=== PATIENT | female | born 1980 | race Hispanic/Latino ===

== ENCOUNTER 2019-03-12 08:03 | Emergency (ER) | payer OTHER ==
[2019-03-12] MEDS ORDERED: ONDANSETRON 4 MG/2 ML VIAL ONE (08:44)
[2019-03-12] MEDS ORDERED: MORPHINE 4 MG/ML SYR ONE (08:44)
[2019-03-12] MEDS ORDERED: NA CHLORIDE 0.9% 1,000 ML ONE (08:44)
[2019-03-12 09:32] LABS: Absolute Lymphocytes (CBC) 1.5 K/uL (0.7-4.9); Hematocrit 37.1 % (36.0-45.0); Lymphocytes % 28.8 % (15.3-44.8); MPV 7.7 fL (7.6-11.3); RBC Red Blood Cell Count 4.31 M/uL (3.86-4.86)
[2019-03-12 09:53] LABS: ALT/SGPT 34 U/L (12-78); AST/SGOT 22 U/L (15-37); Albumin 3.7 g/dL (3.4-5.0); Alkaline Phosphatase 93 U/L (45-117); BUN Blood Urea Nitrogen 10 mg/dL (7-18); Bicarbonate 29 mmol/L (21-32); Bilirubin Direct 0.1 mg/dL (0-0.2); Bilirubin Total 0.6 mg/dL (0.2-1.0); Glucose Level 89 mg/dL (74-106); Lipase 239 U/L (73-393); Potassium 4.2 mmol/L (3.5-5.1); Protein, Total 7.4 g/dL (6.4-8.2); Sodium Level 141 mmol/L (136-145)
--- NOTE | 2019-03-12 10:54 | RAD REPORT ---
EXAM DESCRIPTION: CTAbdomen Pelvis W Contrast - 03/12/2019 10:47 am CLINICAL HISTORY: Abdominal pain. ABD PAIN COMPARISON: No comparisons TECHNIQUE: Biphasic CT imaging of the abdomen and pelvis was performed with 100 ml non-ionic IV cont rast. All CT scans are performed using dose optimization technique as appropriate and may include automated exposure control or mA/KV adjustment according to patient size. FINDINGS: The lung bases are clear. Cholecystectomy clips. The liver a 3 mm cyst. No aggressive liver mass or biliary dilatation. The spleen, pancreas, adrenal glands and kidneys are within normal limits. No bowel obstruction, free air, free fluid or abscess. The appendix is normal. No evidence of signi ficant lymphadenopathy. No suspicious bony findings. IMPRESSION: No acute intra-abdominal or pelvic finding.
--- NOTE | 2019-03-12 11:24 | ER ---
Nurse's Notes [facility] Name: Devika Rajan Age: 38 yrs Sex: Female : 1980 Arrival Date: 03/12/2019 Time: 08:10 Bed 14 Private MD: None, None Diagnosis: Unspecified abdominal pain Presentation: 03/12 08:21 Presenting complaint: Patient states: epigastric pain that began this AM. Transition of ss care: patient was not received from another setting of care. Onset of symptoms was March 12, 2019. Risk Assessment: Do you want to hurt yourself or someone else? Patient reports no desire to harm self or others. Initial Sepsis Screen: Does the patient meet any 2 criteria? No. Patient's initial sepsis screen is negative. Does the patient have a suspected source of infection? No. Patient's initial sepsis screen is negative. Care prior to arrival: None. 08:21 Method Of Arrival: Ambulatory ss 08:21 Acuity: BALDEV 3 ss Historical: - Allergies: 08:22 No Known Allergies; ss - PMHx: 08:22 ADD/ADHD; Depression; Anxiety; Chronic pain; ptsd; ss - Immunization history:: Adult Immunizations unknown. - Social history:: Smoking status: Patient uses tobacco products, smokes two packs cigarettes per day. - Ebola Screening: : Patient denies exposure to infectious person Patient denies travel to an Ebola-affected area in the 21 days before illness onset. Screenin:15 Abuse screen: Denies threats or abuse. Denies injuries from another. Nutritional ph screening: No deficits noted. Tuberculosis screening: No symptoms or risk factors identified. Fall Risk None identified. Assessment: 08:45 General: Appears in no apparent distress. uncomfortable, slender, Behavior is ph cooperative, appropriate for age, anxious, Denies fever. Pain: Complains of pain in epigastric area and right upper quadrant. Neuro: Level of Consciousness is awake, alert, obeys commands, Oriented to person, place, time, situation. Cardiovascular: Capillary refill < 3 seconds in bilateral fingers Patient's skin is warm and dry. Respiratory: Airway is patent Respiratory effort is even, unlabored. GI: Bowel sounds present X 4 quads. Abd is soft X 4 quads Abdomen is tender to palpation in epigastric area and right upper quadrant Reports epigastric pain, nausea. Derm: Skin is intact, is healthy with good turgor, Skin is pink, warm \\T\\ dry. Musculoskeletal: Circulation, motion, and sensation intact. Range of motion: intact in all extremities. 10:00 Reassessment: Patient appears in no apparent distress at this time. Patient and/or ph family updated on plan of care and expected duration. Pain level reassessed. Patient is alert, oriented x 3, equal unlabored respirations, skin warm/dry/pink. Pt resting quietly, awaiting lab and CT results. 11:08 Reassessment: Patient appears in no apparent distress at this time. Patient and/or ph family updated on plan of care and expected duration. Pain level reassessed. Patient is alert, oriented x 3, equal unlabored respirations, skin warm/dry/pink. Pt requesting food, also c/o abdominal pain 9/10, states " Dilaudid is the only thing that works for my pain, you can call the hospital in [place] and ask them." ERP notified and at bedside to speak w/ pt about normal CT and labs. Vital Signs: 08:21 BP 119 / 89; Pulse 67; Resp 15; Temp 98.0(TE); Pulse Ox 100% ; Weight 79.38 kg; Height ph 5 ft. 5 in. (165.10 cm); Pain 9/10; 09:31 BP 119 / 79; Pulse 64; Resp 18; Pulse Ox 99% on R/A; ph 11:11 BP 106 / 71; Pulse 62; Resp 16; Pulse Ox 100% on R/A; ph 11:52 BP 110 / 76; Pulse 65; Resp 20; Temp 97.8; Pulse Ox 99% on R/A; ph 08:21 Body Mass Index 29.12 (79.38 kg, 165.10 cm) ph ED Course: 08:10 Patient arrived in ED. mr 08:10 None, None is Private Physician. mr 08:14 Ivania Barron, APOLLO is Primary Nurse. ph 08:15 Andres Tejada, ROCKY is PHCP. pm1 08:15 Boogie Trevino MD is Attending Physician. pm1 08:21 Arm band placed on right wrist. ss 08:22 Triage completed. ss 10:51 CT Abd/Pelvis - IV Contrast Only In Process Unspecified. EDMS 11:00 Initial lab(s) drawn, by me, sent to lab. Inserted saline lock: 20 gauge in left ph antecubital area, using aseptic technique. Blood collected. 11:01 Patient has correct armband on for positive identification. Bed in low position. Call ph light in reach. Side rails up X2. Pulse ox on. NIBP on. Door closed. Warm blanket given. Pillow given. Head of bed elevated. 11:55 No provider procedures requiring assistance completed. IV discontinued, intact, ph bleeding controlled, No redness/swelling at site. Pressure dressing applied. Administered Medications: 09:26 Drug: NS 0.9% 1000 ml Route: IV; Rate: 1000 ml; Site: left antecubital; ph 11:30 Follow up: Response: No adverse reaction; IV Status: Completed infusion ph 09:28 Drug: morphine 4 mg Route: IVP; Site: left antecubital; ph 10:00 Follow up: Response: No adverse reaction; Pain is decreased; RASS: Alert and Calm (0) ph 09:29 Drug: Zofran 4 mg Route: IVP; Site: left antecubital; ph 10:00 Follow up: Response: No adverse reaction ph 11:51 Drug: GI Cocktail without - (Maalox Suspension 30 ml, Lidocaine Liquid 2 % 15 ph ml) Route: PO; 11:55 Follow up: Response: No adverse reaction ph Outcome: 11:24 Discharge ordered by MD. pm1 11:55 Patient left the ED. ph 11:55 Discharged to home ambulatory. ph 11:55 Condition: good 11:55 Discharge instructions given to patient, Instructed on discharge instructions, follow up and referral plans. medication usage, Demonstrated understanding of instructions, follow-up care, medications, Prescriptions given X 1. Signatures: Dispatcher [employer] ANTONINOWI Sheri Duarte ClarissaLaly zafar RN RN ss Ivania Barron RN RN ph Andres Tejada, ROCKY LINING CEMENTER pm1 Corrections: (The following items were deleted from the chart) 08:15 08:15 Initial Sepsis Screen: Does the patient have a suspected source of infection? ph ph 09:31 08:21 Resp 15bpm; Temp 98.0F Temporal; 79.38 kg; Height 5 ft. 5 in.; BMI: 29.1; Pain ph 9/10; ss
--- NOTE | 2019-03-12 11:25 | EDPHYS ---
Physician Documentation [facility] Name: Devika Rajan Age: 38 yrs Sex: Female : 1980 Arrival Date: 03/12/2019 Time: 08:10 Bed 14 Private MD: None, None ED Physician Boogie Trevino HPI: 03/12 08:29 This 38 yrs old Female presents to ER via Ambulatory with complaints of pm1 Abdominal Pain. 08:29 The patient presents with abdominal pain in the epigastric area. Onset: The pm1 symptoms/episode began/occurred ongoing for at least two years but worse the past two days. The symptoms do not radiate. 08:29 Associated signs and symptoms: Pertinent negatives: nausea, vomiting, and diarrhea. The pm1 symptoms are described as achy. Modifying factors: The symptoms are alleviated by nothing, the symptoms are aggravated by food. Severity of pain: in the emergency department the pain is actually worse. The patient has experienced similar episodes in the past, multiple times. The patient has not recently seen a physician. Historical: - Allergies: 08:22 No Known Allergies; ss - PMHx: 08:22 ADD/ADHD; Depression; Anxiety; Chronic pain; ptsd; ss - Immunization history:: Adult Immunizations unknown. - Social history:: Smoking status: Patient uses tobacco products, smokes two packs cigarettes per day. - Ebola Screening: : Patient denies exposure to infectious person Patient denies travel to an Ebola-affected area in the 21 days before illness onset. ROS: 08:29 Constitutional: Negative for fever, chills, and weight loss, Eyes: Negative for injury, pm1 pain, redness, and discharge, ENT: Negative for injury, pain, and discharge, Neck: Negative for injury, pain, and swelling, Cardiovascular: Negative for chest pain, palpitations, and edema, Respiratory: Negative for shortness of breath, cough, wheezing, and pleuritic chest pain. 08:29 Back: Negative for injury and pain, : Negative for injury, bleeding, discharge, and swelling, MS/Extremity: Negative for injury and deformity, Skin: Negative for injury, rash, and discoloration, Neuro: Negative for headache, weakness, numbness, tingling, and seizure. 08:29 Abdomen/GI: Positive for abdominal pain, Negative for nausea, vomiting, and diarrhea, constipation. Exam: 08:29 Constitutional: This is a well developed, well nourished patient who is awake, alert, pm1 and in no acute distress. Head/Face: Normocephalic, atraumatic. Chest/axilla: Normal chest wall appearance and motion. Nontender with no deformity. No lesions are appreciated. Cardiovascular: Regular rate and rhythm with a normal S1 and S2. No gallops, murmurs, or rubs. Normal PMI, no JVD. No pulse deficits. Respiratory: Lungs have equal breath sounds bilaterally, clear to auscultation and percussion. No rales, rhonchi or wheezes noted. No increased work of breathing, no retractions or nasal flaring. 08:29 Back: No spinal tenderness. No costovertebral tenderness. Full range of motion. Skin: Warm, dry with normal turgor. Normal color with no rashes, no lesions, and no evidence of cellulitis. MS/ Extremity: Pulses equal, no cyanosis. Neurovascular intact. Full, normal range of motion. 08:29 Abdomen/GI: Inspection: abdomen appears normal, Bowel sounds: normal, Palpation: soft, mild abdominal tenderness, in the epigastric area, mass, is not appreciated, rebound tenderness, is not appreciated. 08:29 Neuro: Orientation: is normal, Motor: is normal, moves all fours, Sensation: is normal, no obvious gross deficits. Vital Signs: 08:21 BP 119 / 89; Pulse 67; Resp 15; Temp 98.0(TE); Pulse Ox 100% ; Weight 79.38 kg; Height ph 5 ft. 5 in. (165.10 cm); Pain 9/10; 09:31 BP 119 / 79; Pulse 64; Resp 18; Pulse Ox 99% on R/A; ph 11:11 BP 106 / 71; Pulse 62; Resp 16; Pulse Ox 100% on R/A; ph 11:52 BP 110 / 76; Pulse 65; Resp 20; Temp 97.8; Pulse Ox 99% on R/A; ph 08:21 Body Mass Index 29.12 (79.38 kg, 165.10 cm) ph MDM: 08:17 Patient medically screened. pm1 11:23 Data reviewed: vital signs. Data interpreted: Pulse oximetry: on room air is 100 %. pm1 Interpretation: normal. Counseling: I had a detailed discussion with the patient and/or guardian regarding: the historical points, exam findings, and any diagnostic results supporting the discharge/admit diagnosis, lab results, radiology results, the need for outpatient follow up, for definitive care, a crushing machine operator, to return to the emergency department if symptoms worsen or persist or if there are any questions or concerns that arise at home. 03/12 08:23 Order name: Basic Metabolic Panel; Complete Time: 09:56 pm1 03/12 08:23 Order name: CBC with Diff; Complete Time: 09:56 pm1 03/12 08:23 Order name: Creatinine for Radiology; Complete Time: 09:56 pm1 03/12 08:23 Order name: Hepatic Function; Complete Time: 09:56 pm1 03/12 08:23 Order name: Lipase; Complete Time: 09:56 pm1 03/12 10:28 Order name: Urine Dipstick--Ancillary (enter results); Complete Time: 11:43 bd 03/12 08:23 Order name: IV Saline Lock; Complete Time: 09:29 pm1 03/12 08:23 Order name: Labs collected and sent; Complete Time: 09:29 pm1 03/12 08:28 Order name: CT Abd/Pelvis - IV Contrast Only; Complete Time: 11:06 pm1 03/12 10:28 Order name: Urine --Ancillary (enter results); Complete Time: 11:43 bd 03/12 08:23 Order name: Urine Dipstick-Ancillary (obtain specimen); Complete Time: 09:29 pm1 Administered Medications: 09:26 Drug: NS 0.9% 1000 ml Route: IV; Rate: 1000 ml; Site: left antecubital; ph 11:30 Follow up: Response: No adverse reaction; IV Status: Completed infusion ph 09:28 Drug: morphine 4 mg Route: IVP; Site: left antecubital; ph 10:00 Follow up: Response: No adverse reaction; Pain is decreased; RASS: Alert and Calm (0) ph 09:29 Drug: Zofran 4 mg Route: IVP; Site: left antecubital; ph 10:00 Follow up: Response: No adverse reaction ph 11:51 Drug: GI Cocktail without - (Maalox Suspension 30 ml, Lidocaine Liquid 2 % 15 ph ml) Route: PO; 11:55 Follow up: Response: No adverse reaction ph Disposition: 16:50 Co-signature as Attending Physician, Boogie Trevino MD I agree with the assessment and nola plan of care. Disposition: 03/12/19 11:24 Discharged to Home. Impression: Unspecified abdominal pain. - Condition is Stable. - Discharge Instructions: Abdominal Pain, Adult. - Prescriptions for Bentyl 20 mg Oral Tablet - take 1 tablet by ORAL route every 6 hours As needed; 20 tablet. - Medication Reconciliation Form, Thank You Letter, Antibiotic Education, Prescription Opioid Use form. - Follow up: Emergency Department; When: As needed; Reason: Worsening of condition. Follow up: Private Physician; When: 2 - 3 days; Reason: Recheck today's complaints, Continuance of care, Re-evaluation by your physician. - Problem is new. - Symptoms have improved. Signatures: Dispatcher [employer] Boogie Zuleta MD MD cha Smirch, Shelby, RN RN Ivania Castro RN RN ph Marinas, Patrick, HOE WORKER HOE WORKER pm1 Corrections: (The following items were deleted from the chart) 08:27 08:23 Urine Test ordered. pm1 pm1 11:55 11:24 03/12/2019 11:24 Discharged to Home. Impression: Unspecified abdominal pain. ph Condition is Stable. Forms are Medication Reconciliation Form, Thank You Letter, Antibiotic Education, Prescription Opioid Use. Follow up: Emergency Department; When: As needed; Reason: Worsening of condition. Follow up: Private Physician; When: 2 - 3 days; Reason: Recheck today's complaints, Continuance of care, Re-evaluation by your physician. Problem is new. Symptoms have improved. pm1
[2019-03-12 11:37] LABS: Urine Blood NEGATIVE (NEG); Urine Glucose NEGATIVE (NEG); Urine Protein NEGATIVE (NEG); Urine Specific Gravity 1.025 (1.005-1.030); Urine pH 5.5 (5.0-7.0)
[2019-03-12] MEDS ORDERED: MAGNE/ALUM HYDROXD 30 ML UCUP ONE (11:40)
[2019-03-12] MEDS ORDERED: LIDOCAINE VISCOUS 2% SOLN 15 ML UDC ONE (11:40)
[2019-03-12 12:02] VITALS: TEMP 98
[2019-03-12 12:04] VITALS: BP 106/71; O2SAT 100
== END 2019-03-12 11:55 | disposition home or self-care (01) ==
LOC: ER 08:03
DX: R10.9 Unspecified abdominal pain (principal); F17.210 Nicotine dependence, cigarettes, uncomplicated
CPT/HCPCS: 96361; 85025; 80048; 36415; 81025; 80076; 81003; 83690; 74177; 96375; 96374; 99284; Q9967; J7030; J2405